=== PATIENT | female | born 1985 | race Caucasian/White ===

== ENCOUNTER → 2019-11-04 | Outpatient (CLI) | payer BC | LOC: MC.RAD 10-30 16:30 | DX: Z12.31 Encounter for screening mammogram for malignant neoplasm of breast (principal); N64.89 Other specified disorders of breast ==

== ENCOUNTER → 2019-11-10 | Outpatient (CLI) | payer BC | LOC: MC.RAD 12:58 | DX: N64.89 Other specified disorders of breast (principal) ==

== ENCOUNTER → 2020-05-13 | Outpatient (CLI) | payer BC | LOC: MC.RAD 08:30 | DX: Z12.31 Encounter for screening mammogram for malignant neoplasm of breast (principal); N63.20 Unspecified lump in the left breast, unspecified quadrant ==

== ENCOUNTER → 2022-04-18 | Outpatient (CLI) | payer BC | LOC: MC.RAD 08:49 | DX: Z12.31 Encounter for screening mammogram for malignant neoplasm of breast (principal) ==